=== PATIENT | male | born 1990 | race American Indian/Alaskan Native ===

== ENCOUNTER 2019-09-19 10:32 | Emergency (ER) | payer SELFPAY ==
[2019-09-19] MEDS ORDERED: LIDOCAINE-MPF (1%) 10 MG/1 ML VIAL 5 ML INFILTRATI ONE (12:08)
--- NOTE | 2019-09-19 12:08 | Emergency Department Report ---
ED Head Injury/Laceration HPI - HPI Tetanus Status: Not up to Date Symptoms: Loss of Consciousness: No, Nausea: No, Blurred Vision: Yes, Unusual Behavior: No, Headache: No, Swelling: Yes, Bruising: No, Break in Skin: Yes (above right eyebrow), Bleeding: Yes (above right eyebrow) Other History: This is a 29-year-old -[place] male who presents to the emergency room with a laceration above right eyebrow from a work-related injury. Patient states he hit his head on a metal grate while at work around 9 AM this morning. He reports a headache, blurry vision, and weakness. He is unsure of his last tetanus vaccine. He denies loss of consciousness, nausea, vomiting. ED General PMH - Social History Smoking Status: Current Every Day Smoker ED Review of Systems ROS: Stated complaint: HEAD INJURY AT WORK Other details as noted in HPI Constitutional: denies: chills, fever Eyes: denies: eye pain, eye discharge, vision change ENT: denies: ear pain, throat pain Respiratory: denies: cough, shortness of breath, wheezing Cardiovascular: denies: chest pain, palpitations Gastrointestinal: denies: abdominal pain, nausea, diarrhea Skin: lesions (laceration above right eyebrow). denies: rash Neurological: headache. denies: weakness, paresthesias Psychiatric: denies: anxiety, depression Head Inj w/lac Physical Exam - Exam General: Vital signs noted. No distress. Alert and acting appropriately. Head: Yes PERRL, No Hemotympanum, No Hematoma/Ecchymosis, No Epistaxis, No Stepoff/Deformity, No Abrasion, No Foreign Body Wound Length (cm): 2 Laceration Location: Facial (right eyebrow) Chest, Abd, & Ext: Yes Clear Lung Sounds, Yes Regular Heart Rhythm, No Neck Pain, No Chest Injury/Pain, No Heart Murmur, No Abdominal Tenderness, No Back Tenderness, No Extremity Injury Neuroligical (Head Inj W/O Lac: Yes Normal Speech, Yes Normal Gait, No Lethargy, No Disorientation, No Focal Numbness, No Focal Weakness Exam: Skin: 2 cm laceration into the dermis of the right eyebrow, FROM, serous anginous discharge, tenderness. Neurologic: Alert and oriented, no deficits. No facial droop. Tongue midline. Extraocular movements intact bilaterally. Facial sensation intact to light touch in V1, V2, & V3 distribution bilaterally. Strength 5/5 in all extremities. Sensation intact to light touch in 4 extremities. - Laceration /Wound Repair Left Upper Face Wound Location: face (left eyebrow) Wound Length (cm): 2 Wound's Depth, Shape: into muscle, irregular Wound Explored: clean Irrigated w/ Saline (ccs): 8 Betadine Prep?: Yes Anesthesia: 1% Lidocaine Volume Anesthetic (ccs): 2 Wound Debrided: moderate Wound Repaired With: sutures Number of Sutures: 4 Layer Closure?: No Sterile Dressing Applied?: Yes Left Lower Face Wound Location: face (left eyebrow) Wound Length (cm): 1 Wound's Depth, Shape: into muscle, irregular Wound Explored: clean Irrigated w/ Saline (ccs): 5 Betadine Prep?: Yes Anesthesia: 1% Lidocaine Volume Anesthetic (ccs): 1 Wound Debrided: minimal Wound Repaired With: sutures Suture Size/Type: 6:0 Number of Sutures: 1 Layer Closure?: No Sterile Dressing Applied?: Yes ED Disposition Clinical Impression: Laceration of eyebrow, right Qualifiers: Encounter type: initial encounter Qualified Code(s): S01.111A - Laceration without foreign body of right eyelid and periocular area, initial encounter Head injury without skull fracture Qualifiers: Encounter type: initial encounter Qualified Code(s): S09.90XA - Unspecified injury of head, initial encounter Disposition: TO HOME OR SELFCARE Is pt being admited?: No Condition: Stable Instructions: Suture Care (ED), Laceration (ED) Additional Instructions: Take antibiotics as prescribed for the full course. Keep wound dry and clean for 48 hours. Avoid putting to much tension on wound site. Follow up with Primary Care Provider in 2-3 days. Have sutures removed in 7 days by primary care provider or in ER. Return to ER if red, swollen, foul discharge, or fever. Prescriptions: Clindamycin [Clindamycin CAP] 300 mg PO Q8H #21 cap Referrals: [facility] [Outside] - 3-5 Days [facility] [Outside] - 3-5 Days [facility] [Outside] - 3-5 Days Forms: Work/School Release Form(ED) Time of Disposition: 14:12 ED Medical Decision Making - Radiology Data Radiology results: report reviewed CT head/brain wo con INDICATION / CLINICAL INFORMATION: 29 years Male; MAIN: head injury, laceration right eyebrow TECHNIQUE: Routine CT head without contrast. All CT scans at this location are performed using CT dose reduction for ALARA by means of automated exposure control. COMPARISON: None. FINDINGS: BRAIN / INTRACRANIAL CONTENTS: I do not see intracranial sequela from the trauma. No scalp hematoma and no air-fluid level in the visualized portions of the paranasal sinuses. Graft No acute hemorrhage, mass effect, midline shift, hydrocephalus, or acute, large territorial infarct. No chronic infarct or focal atrophy. Normal brain volume and ventricular/sulcal size for age. No significant white matter abnormality. CRANIOCERVICAL JUNCTION: No significant abnormality. ORBITS: No significant abnormality of visualized orbits. SINUSES / MASTOIDS: No significant abnormality of the visualized paranasal sinuses or mastoid air cells. ADDITIONAL FINDINGS: None. IMPRESSION: Normal nonenhanced CT scan of the brain. CT FACE HISTORY: Injury COMPARISON: None. TECHNIQUE: Axial images of the face were obtained. Coronal reformats were generated. CONTRAST: None. FINDINGS: Minimal soft tissue thickening is seen in the right supraorbital scalp. I do not see CT findings to suggest laceration. Isolated focal areas of emphysema seen in the right temporalis and right masseter muscles and lateral to the body of the mandible on the right side. Facial bones: Midface is normal. Nasal bones, perpendicular plate of ethmoid and zygomaticomaxillary complexes normal. Mandible is normal. Paranasal sinuses: Clear. Orbits: No significant abnormality. Additional findings: None. IMPRESSION: 1. No significant abnormality. - Medical Decision Making This is a 29 y.o. male presents with laceration to right eyebrow. Patient examined by me. Vitals are stable. Patient is non-toxic appearing and stable. CT of head and facial bones obtained. Normal nonenhanced CT scan of the brain. CT of facial bones no significant abnormality. Lacerations x 2 to right eyebrow, closed with sutures. Review suture note. Given boostrix vaccine. Discharged home for outpatient treatment with clindamycin. Discussed ER care plan with patient. Patient agreed with plan. F/U with PCP.
[2019-09-19] MEDS ORDERED: TETANUS,DIPH,PERTUSS(ACELL) VACCINE 0.5 ML SYRINGE IM ONE (12:10)
--- NOTE | 2019-09-19 13:10 | Cat Scan Report ---
CT head/brain wo con INDICATION / CLINICAL INFORMATION: 29 years Male; MAIN: head injury, laceration right eyebrow TECHNIQUE: Routine CT head without contrast. All CT scans at this location are performed using CT dos e reduction for ALARA by means of automated exposure control. COMPARISON: None. FINDINGS: BRAIN / INTRACRANIAL CONTENTS: I do not see intracranial sequela from the trauma. No scalp hematoma a nd no air-fluid level in the visualized portions of the paranasal sinuses. Graft No acute hemorrhage, mass effect, midline shift, hydrocephalus, or acute, large territorial infarct. No chronic infarct o r focal atrophy. Normal brain volume and ventricular/sulcal size for age. No significant white matter abnormality. CRANIOCERVICAL JUNCTION: No significant abnormality. ORBITS: No significant abnormality of visualized orbits. SINUSES / MASTOIDS: No significant abnormality of the visualized paranasal sinuses or mastoid air citlalli ls. ADDITIONAL FINDINGS: None. IMPRESSION: Normal nonenhanced CT scan of the brain. Signer Name: Adenike Larose MD Signed: 09/19/2019 1:05 PM Workstation Name: [id number]
--- NOTE | 2019-09-19 13:16 | Cat Scan Report ---
All CT scans at this location are performed using CT dose reduction for ALARA by means of automated e xposure control. CT FACE HISTORY: Injury COMPARISON: None. TECHNIQUE: Axial images of the face were obtained. Coronal reformats were generated. CONTRAST: None. FINDINGS: Minimal soft tissue thickening is seen in the right supraorbital scalp. I do not see CT fin dings to suggest laceration. Isolated focal areas of emphysema seen in the right temporalis and right masseter muscles and latera l to the body of the mandible on the right side. Facial bones: Midface is normal. Nasal bones, perpendicular plate of ethmoid and zygomaticomaxillary complexes normal. Mandible is normal. Paranasal sinuses: Clear. Orbits: No significant abnormality. Additional findings: None. IMPRESSION: 1. No significant abnormality. Signer Name: Adenike Larose MD Signed: 09/19/2019 1:12 PM Workstation Name: [id number]
[2019-09-19 14:30] VITALS: BP 120/74
== END 2019-09-19 14:29 | disposition home or self-care (01) ==
LOC: ED 10:32
DX: S01.111A Laceration without foreign body of right eyelid and periocular area, initial encounter (principal); S09.90XA Unspecified injury of head, initial encounter; F17.200 Nicotine dependence, unspecified, uncomplicated; W22.8XXA Striking against or struck by other objects, initial encounter; Y93.89 Activity, other specified; Y92.89 Other specified places as the place of occurrence of the external cause; Y99.0 Civilian activity done for income or pay
CPT/HCPCS: 70450; 70486; 90471; 90715

== ENCOUNTER 2019-09-28 11:48 | Emergency (ER) | payer SELFPAY ==
[2019-09-28 11:53] VITALS: BP 113/75
--- NOTE | 2019-09-28 11:53 | Emergency Department Report ---
Suture/Staple Removal - HPI Chief Complaint: Medical Clearance Stated Complaint: SUTURE REMOVAL Time Seen by Provider: 09/28/19 11:52 When Sutures or Yari Placed: 8-10 Days Ago Wound Location: right eyebrow ED Review of Systems ROS: Stated complaint: SUTURE REMOVAL Other details as noted in HPI Constitutional: denies: chills, fever Respiratory: denies: cough, shortness of breath, wheezing Cardiovascular: denies: chest pain, palpitations Gastrointestinal: denies: abdominal pain, nausea, diarrhea Musculoskeletal: denies: back pain, joint swelling, arthralgia Skin: lesions (sutures to right eyebrow healed laceration). denies: rash Neurological: denies: headache, weakness, paresthesias Psychiatric: denies: anxiety, depression ED Past Medical Hx - Past Medical History Previous Medical History?: No - Surgical History Past Surgical History?: No - Social History Smoking Status: Current Every Day Smoker - Medications Home Medications: Home Medications Medication Instructions Recorded Confirmed Last Taken Type Clindamycin [Clindamycin CAP] 300 mg PO Q8H #21 cap 09/19/19 Unknown Rx Suture Removal Exam - Exam General: Vital signs noted. No distress. Alert and acting appropriately. Wound: No Pathologic Erythema, No Tenderness, No Drainage, No Pus, No Wound Dehiscence Other Systems: All other systems reviewed and are unremarkable. ED Recheck MDM - Differential Diagnosis Suture/Staple Removal - Medical Decision Making 29-year-old male that presents for suture removal. Patient is stable and was examined by me. Sutures x 4 removed with wire foreceps from right eyebrow. No drainage, swelling, or erythema. Wound edges are well approximated with no signs of infection. Wound cleaned with alcohol med prep pad. Patient tolerated well. Educated on care. Patient was instructed to Follow-up with a primary care doctor. At time of discharge, the patient does not seem toxic or ill in appearance. No acute signs of distress noted. Patient agrees to discharge treatment plan of care. No further questions noted by the patient. Critical care attestation.: If time is entered above; I have spent that time in minutes in the direct care of this critically ill patient, excluding procedure time. ED Disposition Clinical Impression: Visit for suture removal Disposition: TO HOME OR SELFCARE Is pt being admited?: No Condition: Stable Instructions: Suture Removal (ED) Additional Instructions: It is okay to apply neosporin, vitamin E, or mederma to wound for scaring. Follow-up with a primary care doctor in 3-5 days or if symptoms worsen and continue return to the emergency department as soon as possible. Referrals: [facility] [Outside] - 3-5 Days [facility] [Outside] - 3-5 Days [facility] [Outside] - 3-5 Days Forms: Work/School Release Form(ED) Time of Disposition: 11:58
== END 2019-09-28 12:16 | disposition home or self-care (01) ==
LOC: ED 11:48
DX: S01.111D Laceration without foreign body of right eyelid and periocular area, subsequent encounter (principal); F17.200 Nicotine dependence, unspecified, uncomplicated; Z79.899 Other long term (current) drug therapy; X58.XXXD Exposure to other specified factors, subsequent encounter